=== PATIENT | male | born 1995 | race Caucasian/White ===

== ENCOUNTER 2018-02-06 00:29 | Emergency (ER) | payer OTHER ==
[~2018-02-06] VITALS: Ht 172.7 cm; Wt 82.0 kg
[2018-02-06] MEDS ORDERED: AZITHROMYCIN 500 MG TABLET PO ONE (01:45)
[2018-02-06] MEDS ORDERED: IBUPROFEN 800MG TABLET PO ONE (01:45)
[2018-02-06] MEDS ORDERED: CEFTRIAXONE SODIUM 250 MG/VIAL IM ONE (01:45)
[2018-02-06] MEDS ORDERED: ACETAMINOPHEN 500MG TABLET PO ONE (01:45)
[2018-02-06] MEDS ORDERED: LIDOCAINE HCL 1% 20ML VIAL (Pyxis) INJ INFIL ONE (01:45)
[2018-02-06] MEDS ORDERED: PENICILLIN G BENZATHINE 2,400,000 UNITS/4ML SYR IM ONE (01:45)
[2018-02-06 02:22] LABS: CLARITY URINE CLEAR (CLEAR); COLOR URINE YELLOW (YELLOW); KETONES URINE TRACE (NEGATIVE); LEUKOCYTE ESTERASE URINE NEGATIVE (NEGATIVE); NITRITE URINE NEGATIVE (NEGATIVE); OCCULT BLOOD URINE NEGATIVE (NEGATIVE); PH URINE 5.5 (4.5-8.0); PROTEIN URINE NEGATIVE (NEGATIVE); SPECIFIC GRAVITY URINE 1.031 (1.005-1.030); UROBILINOGEN URINE 0.2 E.U./dL (0.2-1.0)
[2018-02-06 02:36] VITALS: BP 120/61
== END 2018-02-06 02:41 | disposition home or self-care (01) ==
LOC: ER 00:29
DX: Z20.2 Contact with and (suspected) exposure to infections with a predominantly sexual mode of transmission (principal)
CPT/HCPCS: 81003; 86592; 86593; 86780; 96372; 99284; J0561; J0696; J3490; Z7610